=== PATIENT | male | born 1990 | race Hispanic/Latino ===

== ENCOUNTER 2019-01-13 15:36 | Emergency (ER) | payer BC ==
[2019-01-13] MEDS ORDERED: KETOROLAC 30 MG/ML INJ ONE (16:28)
[2019-01-13] MEDS ORDERED: NA CHLORIDE 0.9% 1,000 ML ONE (16:28)
[2019-01-13] MEDS ORDERED: DIPHENHYDRAMINE 50 MG/ML VIAL ONE (16:28)
[2019-01-13] MEDS ORDERED: METOCLOPRAMIDE 10 MG/2mL INJ ONE (16:28)
--- NOTE | 2019-01-13 16:41 | RAD REPORT ---
EXAM DESCRIPTION: CT - Head Brain Wo Cont - 01/13/2019 4:28 pm CLINICAL HISTORY: HEADACHE Headache, drowsiness COMPARISON: <Comparisons> TECHNIQUE: All CT scans are performed using dose optimization technique as appropriate and may inclu de automated exposure control or mA/KV adjustment according to patient size. FINDINGS: No intracranial hemorrhage, hydrocephalus or extra-axial fluid collection.No areas of brai n edema or evidence of midline shift. The paranasal sinuses and mastoids are clear. The calvarium is intact. IMPRESSION: No acute intracranial abnormality.
--- NOTE | 2019-01-13 17:58 | ER ---
Nurse's Notes [facility] Name: Shelton Parada Jr Age: 28 yrs Sex: Male : 1990 Arrival Date: 01/13/2019 Time: 15:38 Bed 18 Private MD: Diagnosis: Headache Presentation: 01/13 15:41 Presenting complaint: Patient states: CALDERON for the last 48 hours. Low grade temp at home. la1 Transition of care: patient was not received from another setting of care. Onset of symptoms was January 13, 2019. Risk Assessment: Do you want to hurt yourself or someone else? Patient reports no desire to harm self or others. Initial Sepsis Screen: Does the patient meet any 2 criteria? No. Patient's initial sepsis screen is negative. Does the patient have a suspected source of infection? No. Patient's initial sepsis screen is negative. Care prior to arrival: None. 15:41 Method Of Arrival: Ambulatory la1 15:41 Acuity: NEREYDA 3 la1 Historical: - Allergies: 15:42 No Known Allergies; la1 - PMHx: 15:42 None; la1 - Immunization history:: Adult Immunizations up to date. - Social history:: Smoking status: Patient/guardian denies using tobacco. - Ebola Screening: : No symptoms or risks identified at this time. Screenin:00 Abuse screen: Denies threats or abuse. Nutritional screening: No deficits noted. em Tuberculosis screening: No symptoms or risk factors identified. Fall Risk None identified. Assessment: 16:00 General: Appears in no apparent distress. comfortable, Behavior is calm, cooperative, em Denies fever. Pain: Complains of pain in forehead Pain currently is 8 out of 10 on a pain scale. Quality of pain is described as sharp. Neuro: Level of Consciousness is awake, alert, obeys commands, Oriented to person, place, time, situation, Reports headache frontal area, Denies dizziness, numbness photophobia. Cardiovascular: Capillary refill < 3 seconds Patient's skin is warm and dry. Respiratory: Airway is patent Respiratory effort is even, unlabored, Respiratory pattern is regular, symmetrical. GI: Abdomen is flat, Patient currently denies nausea, vomiting. EENT: Denies nasal congestion, nasal discharge. Derm: Skin is intact, is healthy with good turgor, Skin is pink, warm \T\ dry. Musculoskeletal: Capillary refill < 3 seconds, Range of motion: intact in all extremities. 16:50 Reassessment: Patient appears in no apparent distress at this time. Patient and/or em family updated on plan of care and expected duration. Pain level reassessed. Patient is alert, oriented x 3, equal unlabored respirations, skin warm/dry/pink. 17:50 Reassessment: Patient appears in no apparent distress at this time. Patient and/or em family updated on plan of care and expected duration. Pain level reassessed. Patient is alert, oriented x 3, equal unlabored respirations, skin warm/dry/pink. rates pain 3/10 Patient states feeling better. Vital Signs: 15:42 BP 158 / 64; Pulse 79; Resp 16; Temp 99.5; Pulse Ox 100% on R/A; Weight 97.52 kg; la1 Height 5 ft. 10 in. (177.80 cm); 17:12 BP 130 / 74; Pulse 71; Resp 18; Temp 99.1(O); Pulse Ox 99% on R/A; Pain 4/10; em 18:23 BP 137 / 68; Pulse 69; Resp 18; Pulse Ox 99% on R/A; Pain 3/10; em 15:42 Body Mass Index 30.85 (97.52 kg, 177.80 cm) la1 ED Course: 15:38 Patient arrived in ED. as 15:42 Triage completed. la1 15:42 Arm band placed on left wrist. la1 15:56 Robby Zimmerman NP is PHCP. pm1 15:56 Milton Cordova MD is Attending Physician. pm1 16:00 Patient has correct armband on for positive identification. Placed in gown. Bed in low em position. Adult w/ patient. Pulse ox on. NIBP on. 16:27 Kevin Tolentino LVN is Primary Nurse. em 16:28 CT completed. Patient tolerated procedure well. Patient moved back from CT. mw3 16:31 CT Head Brain wo Cont In Process Unspecified. EDMS 16:45 Initial lab(s) drawn, by me, sent to lab. Inserted saline lock: 20 gauge in right em antecubital area, using aseptic technique. Blood collected. 18:23 No provider procedures requiring assistance completed. IV discontinued, intact, em bleeding controlled, No redness/swelling at site. Pressure dressing applied. Administered Medications: 16:47 Drug: Reglan 10 mg Route: IVP; Site: right antecubital; iw 17:20 Follow up: Response: No adverse reaction; Pain is decreased em 16:47 Drug: NS 0.9% 1000 ml Route: IV; Rate: 1000 ml; Site: right antecubital; iw 17:39 Follow up: IV Status: Completed infusion; IV Intake: 1000ml em 16:47 Drug: Benadryl 25 mg Route: IVP; Site: right antecubital; iw 17:39 Follow up: Response: No adverse reaction; Pain is decreased em 16:49 Drug: TORadol 30 mg Route: IVP; Site: right antecubital; iw 17:20 Follow up: Response: No adverse reaction; Pain is decreased em Intake: 17:39 IV: 1000ml; Total: 1000ml. em Outcome: 17:57 Discharge ordered by MD. pm1 18:23 Discharged to home ambulatory, with family. em 18:23 Condition: good 18:23 Discharge instructions given to patient, Instructed on discharge instructions, follow up and referral plans. medication usage, Demonstrated understanding of instructions, follow-up care, medications, Prescriptions given X 1. 18:24 Patient left the ED. em Signatures: Dispatcher [employer] Kevin Steele, CYNTHIA POOL TECHNICIAN Delaney Alvarado Irene, RN BRAD Ethan Baig RN RN la1 Robby Zimmerman, CRYSTAL GROWER CRYSTAL GROWER pm1 Florencia Sage mw3 Corrections: (The following items were deleted from the chart) 17:14 16:00 General: Appears in no apparent distress. comfortable, Behavior is calm, em cooperative, Reports fever for em
--- NOTE | 2019-01-13 17:59 | EDPHYS ---
Physician Documentation [facility] Name: Shelton Parada Jr Age: 28 yrs Sex: Male : 1990 Arrival Date: 01/13/2019 Time: 15:38 Bed 18 Private MD: ED Physician Milton Cordova HPI: 01/13 16:20 This 28 yrs old Male presents to ER via Ambulatory with complaints of Headache.pm1 16:20 The patient complains of pain to the forehead, right yarsani and left yarsani. The pm1 patient describes the headache as aching, constant. Onset: The symptoms/episode began/occurred 2 day(s) ago. Associated signs and symptoms: Pertinent positives: fever tmax 99, Pertinent negatives: altered mental status, dizziness, nausea, neck stiffness, rash, vision changes, vomiting, weakness. Severity of symptoms: in the emergency department the pain is unchanged, a " 7" out of "10". Headache History: Denies prior headaches. The symptoms are alleviated by Darkened room, the symptoms are aggravated by lights. The patient has not experienced similar symptoms in the past. The patient has not recently seen a physician. Historical: - Allergies: 15:42 No Known Allergies; la1 - PMHx: 15:42 None; la1 - Immunization history:: Adult Immunizations up to date. - Social history:: Smoking status: Patient/guardian denies using tobacco. - Ebola Screening: : No symptoms or risks identified at this time. ROS: 16:20 Eyes: Negative for injury, pain, redness, and discharge, ENT: Negative for injury, pm1 pain, and discharge, Neck: Negative for injury, pain, and swelling, Cardiovascular: Negative for chest pain, palpitations, and edema, Respiratory: Negative for shortness of breath, cough, wheezing, and pleuritic chest pain, Abdomen/GI: Negative for abdominal pain, nausea, vomiting, diarrhea, and constipation, Back: Negative for injury and pain, : Negative for injury, bleeding, discharge, and swelling, MS/Extremity: Negative for injury and deformity, Skin: Negative for injury, rash, and discoloration. 16:20 Constitutional: Positive for fever, Negative for body aches, chills, poor PO intake. 16:20 Neuro: Positive for headache, Negative for dizziness, numbness, tingling, weakness. Exam: 16:20 Constitutional: This is a well developed, well nourished patient who is awake, alert, pm1 and in no acute distress. Head/Face: Normocephalic, atraumatic. Eyes: Pupils equal round and reactive to light, extra-ocular motions intact. Lids and lashes normal. Conjunctiva and sclera are non-icteric and not injected. Cornea within normal limits. Periorbital areas with no swelling, redness, or edema. ENT: Nares patent. No nasal discharge, no septal abnormalities noted. Tympanic membranes are normal and external auditory canals are clear. Oropharynx with no redness, swelling, or masses, exudates, or evidence of obstruction, uvula midline. Mucous membranes moist. Neck: Trachea midline, no thyromegaly or masses palpated, and no cervical lymphadenopathy. Supple, full range of motion without nuchal rigidity, or vertebral point tenderness. No Meningismus. Chest/axilla: Normal chest wall appearance and motion. Nontender with no deformity. No lesions are appreciated. Cardiovascular: Regular rate and rhythm with a normal S1 and S2. No gallops, murmurs, or rubs. Normal PMI, no JVD. No pulse deficits. Respiratory: Lungs have equal breath sounds bilaterally, clear to auscultation and percussion. No rales, rhonchi or wheezes noted. No increased work of breathing, no retractions or nasal flaring. Abdomen/GI: Soft, non-tender, with normal bowel sounds. No distension or tympany. No guarding or rebound. No evidence of tenderness throughout. Back: No spinal tenderness. No costovertebral tenderness. Full range of motion. Skin: Warm, dry with normal turgor. Normal color with no rashes, no lesions, and no evidence of cellulitis. MS/ Extremity: Pulses equal, no cyanosis. Neurovascular intact. Full, normal range of motion. 16:20 Neuro: Orientation: is normal, Mentation: is normal, Cranial nerves: CN II- XII are normal as tested, Cerebellar function: is grossly normal, normal finger to nose testing, heel to lopes testing is normal, Motor: moves all fours, strength is normal, strength is 5/5 in all extremities, Sensation: is normal, no obvious gross deficits. Vital Signs: 15:42 BP 158 / 64; Pulse 79; Resp 16; Temp 99.5; Pulse Ox 100% on R/A; Weight 97.52 kg; la1 Height 5 ft. 10 in. (177.80 cm); 17:12 BP 130 / 74; Pulse 71; Resp 18; Temp 99.1(O); Pulse Ox 99% on R/A; Pain 4/10; em 18:23 BP 137 / 68; Pulse 69; Resp 18; Pulse Ox 99% on R/A; Pain 3/10; em 15:42 Body Mass Index 30.85 (97.52 kg, 177.80 cm) la1 MDM: 16:00 Patient medically screened. shiraz 17:56 Data reviewed: vital signs. Data interpreted: Pulse oximetry: on room air is 99 %. pm1 Interpretation: normal. Counseling: I had a detailed discussion with the patient and/or guardian regarding: the historical points, exam findings, and any diagnostic results supporting the discharge/admit diagnosis, radiology results, the need for outpatient follow up, to return to the emergency department if symptoms worsen or persist or if there are any questions or concerns that arise at home. 01/13 16:13 Order name: CT Head Brain wo Cont; Complete Time: 16:43 pm1 01/13 16:13 Order name: IV Saline Lock; Complete Time: 16:46 pm1 Administered Medications: 16:47 Drug: Reglan 10 mg Route: IVP; Site: right antecubital; iw 17:20 Follow up: Response: No adverse reaction; Pain is decreased em 16:47 Drug: NS 0.9% 1000 ml Route: IV; Rate: 1000 ml; Site: right antecubital; iw 17:39 Follow up: IV Status: Completed infusion; IV Intake: 1000ml em 16:47 Drug: Benadryl 25 mg Route: IVP; Site: right antecubital; iw 17:39 Follow up: Response: No adverse reaction; Pain is decreased em 16:49 Drug: TORadol 30 mg Route: IVP; Site: right antecubital; iw 17:20 Follow up: Response: No adverse reaction; Pain is decreased em Disposition: 01/13/19 17:57 Discharged to Home. Impression: Headache. - Condition is Stable. - Discharge Instructions: General Headache Without Cause. - Prescriptions for Fiorinal 50- 325-40 mg Oral Capsule - take 1 capsule by ORAL route every 4 hours As needed - not to exceed 6 capsules per day; 20 capsule. - Medication Reconciliation Form, Thank You Letter, Antibiotic Education, Prescription Opioid Use form. - Follow up: Emergency Department; When: As needed; Reason: Worsening of condition. Follow up: Private Physician; When: 2 - 3 days; Reason: Recheck today's complaints, Continuance of care, Re-evaluation by your physician. - Problem is new. - Symptoms have improved. Addendum: 01/15/2019 09:58 Co-signature as Attending Physician, Milton Cordova MD I agree with the assessment and c ventura plan of care. Signatures: Dispatcher [employer] EDMilton Hand MD MD cha Munoz, Edgar, OPTICAL LATHE OPERATOR OPTICAL LATHE OPERATOR em Kait Jacinto RN RN iw Ethan Baig RN RN la1 Robby Zimmerman, GENERAL DOC GENERAL DOC pm1 Corrections: (The following items were deleted from the chart) 01/13 18:24 17:57 01/13/2019 17:57 Discharged to Home. Impression: Headache. Condition is Stable. em Forms are Medication Reconciliation Form, Thank You Letter, Antibiotic Education, Prescription Opioid Use. Follow up: Emergency Department; When: As needed; Reason: Worsening of condition. Follow up: Private Physician; When: 2 - 3 days; Reason: Recheck today's complaints, Continuance of care, Re-evaluation by your physician. Problem is new. Symptoms have improved. pm1
== END 2019-01-13 18:24 | disposition home or self-care (01) ==
LOC: ER 15:36
DX: R51 Headache (principal)
CPT/HCPCS: 96361; 70450; 96375; 96374; 99284; J2765; J7030

== ENCOUNTER 2019-04-30 02:26 | Emergency (ER) | payer BC ==
[2019-04-30 03:41] LABS: Hematocrit 50.5 % (39.6-49.0); MPV 9.4 fL (7.6-11.3)
[2019-04-30 03:59] LABS: Albumin 4.3 g/dL (3.4-5.0); Bilirubin Total 0.3 mg/dL (0.2-1.0); Potassium 3.5 mmol/L (3.5-5.1); Protein, Total 7.6 g/dL (6.4-8.2)
[2019-04-30 04:00] LABS: Urine Blood NEGATIVE (NEG); Urine Glucose NEGATIVE (NEG); Urine Protein NEGATIVE (NEG); Urine pH 5.5 (5.0-7.0)
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
[2019-04-30] MEDS ORDERED: NA CHLORIDE 0.9% 1,000 ML ONE (04:52)
[2019-04-30] MEDS ORDERED: TETANUS & DIPHTHERIA TOX,ADULT 0.5 ML VIAL ONE (04:56)
[2019-04-30 05:21] VITALS: BP 154/96; TEMP 99.5; O2SAT 97
== END 2019-04-30 05:06 | disposition short-term general hospital (02) ==
LOC: ER 02:26
DX: T20.60XA Corrosion of second degree of head, face, and neck, unspecified site, initial encounter (principal); T22.60XA Corrosion of second degree of shoulder and upper limb, except wrist and hand, unspecified site, initial encounter; N17.9 Acute kidney failure, unspecified; T49.0X1A Poisoning by local antifungal, anti-infective and anti-inflammatory drugs, accidental (unintentional), initial encounter; T32.0 Corrosions involving less than 10% of body surface; Y93.9 Activity, unspecified; Y92.89 Other specified places as the place of occurrence of the external cause; Y99.8 Other external cause status; Z23 Encounter for immunization
CPT/HCPCS: 36415; 81003; 85027; 80053; 90471; 90714; 99285; J7030

== ENCOUNTER 2019-12-12 03:05 | Emergency (ER) | payer BC, OTHER ==
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
--- OUTSIDE RECORDS SUMMARY | 2019-12-12 03:07 | XMS REPORT | Continuity of Care Document ---
:1990 Author Organization [facility] t Address [address] [place] [address] Care Team Providers Name Role Phone Doctor Unassigned, [place] Attending Clinician Unavailable Singer LEIVA Attending Clinician Anejonh PIE CHEF Attending Clinician Demian SALINAS, S Attending Clinician Unavailable Pob1, Care Clinic Attending Clinician Unavailable Problems This patient has no known problems. Allergies, Adverse Reactions, Alerts This patient has no known allergies or adverse reactions. Medications This patient has no known medications. Procedures This patient has no known procedures. Encounters Start End Encounter Admission Attending Care Care Encounter Source Date/Time Date/Time Type Type Clinicians Facility Department ID 2019-12-11 2019-12-11 Orders Doctor GIMENEZ [id number] 00:00:00 00:00:00 Only UnassignedANN MARIE [id number] [place] [facility] [id number] 2019-11-30 2019-11-30 Emergency ENRIQUE Wahl [id number] 19:44:35 20:18:00 Babak Maldonado [id number] [place] [id number] [place] [id number] 2019-11-30 2019-11-30 Telephone ENRIQUE Martinez [id number] 00:00:00 00:00:00 [facility] [id number] [place] [id number] [place] [phone] nal [address] 2019-11-28 2019-11-28 Telephone PERNELL Arciniega [id number] 00:00:00 00:00:00 Shannan Crow ANN MARIE [id number] [facility] [id number] 2019-11-26 2019-11-26 Urgent Pob1, Acute [facility] [id number] 15:06:46 15:26:46 [facility] [id number] [place] [id number] [facility] [phone] nal [address] Results This patient has no known results.
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
--- OUTSIDE RECORDS SUMMARY | 2019-12-12 03:08 | XMS REPORT | Summary of Care ---
:1990 Author Organization [facility] - Health Address [address] [place] [id number] Care Team Providers Name Role Phone Pcp, Patient Does Not Have A Primary Care Provider +[id number] 0-0000 Reason for Visit Reason Comments Other COVID Positive Auth/Cert Status Reason Specialty Diagnoses / Referred By Referred To Procedures Contact Contact Emergency Medicine [facility] Em ergency Dept [address] [place] [address] Fax: Encounter Details Date Type Department Care Team Description 11/30/2019 Emergency ADC-Emergency Babak Wahl DO Acute bronchitis due Department [address] [place] [address]. to COVID-[address] [facility] [address] (Primary Dx) [place] [address] [place] [address] [phone] Allergies No Known Allergiesdocumented as of this [...] Cough. chlorpheniramine 4 mg Take 1 tablet by 30 tablet 0 11/30/2019 Active tabletIndications: Acute mouth every 6 bronchitis due to (six) hours as COVID-19 virus needed for Allergies or Runny nose. multivitamin Take 1 capsule 30 capsule 0 11/30/2019 Active capsuleIndications: by mouth daily. Acute bronchitis due to COVID-19 virus ulenstc-[id number]-[id number] Take as directed 90 tablet 0 11/30/2019 Active 333-133-8.3 mg for daily dose. TabIndications: Acute bronchitis due to COVID-19 virus documented as [...] Sign Reading Time Taken Comments Blood Pressure 163/94 11/30/2019 7:57 PM CDT Pulse 101 11/30/2019 7:51 PM CDT Temperature 38.2 C (100.8 F) 11/30/2019 7:57 PM CDT Respiratory Rate 20 11/30/2019 7:57 PM CDT Oxygen Saturation 95% 11/30/2019 7:51 PM CDT Inhaled Oxygen Concentration - - Weight 90.7 kg (200 lb) 11/30/2019 7:51 PM CDT Height - - Body Mass Index 28.7 11/26/2019 3:17 PM CDT documented in this encounter Discharge Instructions AttachmentsThe following attachments cannot be sent through Care Everywhere. Coronavirus Disease 2018 (COVID-19) ([place])documented in this encounter Plan of Treatment Health Maintenance Due Date Last Done Comments VARICELLA VACCINES (1 of - 1993 2-dose childhood series) DTaP,Tdap,and [...] filedocumented in this encounter Visit Diagnoses Diagnosis Acute bronchitis due to COVID-19 virus - Primary documented in this encounter Additional Health Concerns Infection Onset Date Last Indicated Resolved Time COVID-19 Confirmed 11/28/2019 11/28/2019 documented as of this encounter Insurance Payer Benefit Plan Subscriber ID Effective Dates Phone Address Type / Group [place] [id number] [place] [phone] [place] P[place] - OUT OF t 7 [id number] [place] [address] documented as of this encounter
[2019-12-12] MEDS ORDERED: KETOROLAC 30 MG/ML INJ ONE (03:31)
[2019-12-12] MEDS ORDERED: NA CHLORIDE 0.9% 1,000 ML ONE ×2 (03:32→05:33)
[2019-12-12 03:59] LABS: Absolute Lymphocytes (CBC) 2.5 K/uL (0.7-4.9); Basophils % 1.4 % (0-1.3); Hematocrit 47.2 % (39.6-49.0); Lymphocytes % 17.2 % (15.3-44.8); RBC Red Blood Cell Count 5.37 M/uL (4.33-5.43)
[2019-12-12 04:05] LABS: Albumin 3.6 g/dL (3.4-5.0); Bilirubin Direct 0.2 mg/dL (0-0.2); Bilirubin Total 0.6 mg/dL (0.2-1.0); Potassium 4.3 mmol/L (3.5-5.1); Protein, Total 7.6 g/dL (6.4-8.2)
--- NOTE | 2019-12-12 05:01 | EDPHYS ---
Physician Documentation [facility] Name: Shelton Parada Jr Age: 29 yrs Sex: Male : 1990 Arrival Date: 12/12/2019 Time: 03:05 Bed 6 Private MD: MARU Physician Hudson Liu Historical: - Allergies: 12/11 03:18 No Known Allergies; ao - Home Meds: 03:18 None [Active]; ao - PMHx: 03:18 None; ao - PSHx: 03:18 None; ao - Immunization history:: Adult Immunizations up to date. - Social history:: Smoking status: Patient denies any tobacco usage or history of. Patient/guardian denies using alcohol, street drugs, IV drugs. Vital Signs: 03:14 BP 140 / 95; Pulse 133; Resp 20; Temp 99.2(O); Pulse Ox 99% on R/A; Weight 86.18 kg; ao Height 5 ft. 8 in. (172.72 cm); 04:20 BP 138 / 90; Pulse 116; Resp 16; Pulse Ox 96% on R/A; ao 04:57 BP 126 / 80; Pulse 103; Resp 16; Pulse Ox 95% ; ao 05:11 BP 121 / 80; Pulse 107; Resp 18; Temp 98.4; Pulse Ox 95% on R/A; ea 05:45 BP 127 / 78; Pulse 98; Resp 16; Pulse Ox 96% ; ao 03:14 Body Mass Index 28.89 (86.18 kg, 172.72 cm) ao MDM: 03:07 Patient medically screened. 12/11 03:20 Order name: Basic Metabolic Panel; Complete Time: 04:59 12/11 04:59 Interpretation: Normal except: GLUC 109; GFR 75. 12/11 03:20 Order name: CBC with Diff; Complete Time: 04:59 12/11 04:59 Interpretation: Normal except: WBC 14.7; BASO% 1.4; NEUT A 10.3. 12/11 03:20 Order name: Hepatic Function; Complete Time: 04:59 12/11 04:59 Interpretation: Normal except: AST 79; ALT 272; GLOB 4.0; A/G 0.9. 12/11 03:20 Order name: Lipase; Complete Time: 04:59 4 12/11 04:59 Interpretation: Within normal limits: LIP 205. 4 12/11 04:06 Order name: CXR XRAY 12/11 04:06 Order name: CXR XRAY 12/11 03:20 Order name: IV Saline Lock; Complete Time: 03:42 tw4 12/11 03:20 Order name: Labs collected and sent; Complete Time: 03:42 tw4 Administered Medications: 03:28 CANCELLED (Other Intervention Used): TORadol 60 mg IM once ea 03:41 Drug: NS 0.9% 1000 ml Route: IV; Rate: 1 bolus; Site: right antecubital; ao 05:46 Follow up: IV Status: Completed infusion; IV Intake: 1000ml ao 03:41 Drug: TORadol 30 mg Route: IVP; Site: right antecubital; ao 05:47 Follow up: Response: No adverse reaction ao 05:26 Drug: NS 0.9% 1000 ml Route: IV; Rate: 1 bolus; Site: right antecubital; ea 06:57 Follow up: IV Status: Completed infusion; IV Intake: 1000ml ao Disposition: 12/12/19 05:00 Discharged to Home. Impression: Sprain of ligaments of thoracic spine. - Condition is Stable. - Discharge Instructions: Back Pain, Adult, Thoracic Strain. - Prescriptions for Ibuprofen 800 mg Oral Tablet - take 1 tablet by ORAL route every 8 hours As needed take with food; 30 tablet. Cyclobenzaprine 10 mg Oral Tablet - take 1 tablet by ORAL route every 8 hours As needed; 30 tablet. - Medication Reconciliation Form, Thank You Letter, Antibiotic Education, Prescription Opioid Use form. - Follow up: Private Physician; When: Upon discharge from the Emergency Department; Reason: Recheck today's complaints, Continuance of care, Re-evaluation by your physician. - Problem is new. - Symptoms have improved. Signatures: Dispatcher [employer] Homero Franks RN Janny Falcon RN RN ea Wadley, Terrence, MD MD tw4 Corrections: (The following items were deleted from the chart) 03:28 03:14 TORadol 60 mg IM once ordered. tw4 ea 07:00 05:00 12/12/2019 05:00 Discharged to Home. Impression: Sprain of ligaments of thoracic ao spine. Condition is Stable. Forms are Medication Reconciliation Form, Thank You Letter, Antibiotic Education, Prescription Opioid Use. Follow up: Private Physician; When: Upon discharge from the Emergency Department; Reason: Recheck today's complaints, Continuance of care, Re-evaluation by your physician. Problem is new. Symptoms have improved. tw4
--- NOTE | 2019-12-12 05:01 | ER ---
Nurse's Notes [facility] Name: Shelton Parada Jr Age: 29 yrs Sex: Male : 1990 Arrival Date: 12/12/2019 Time: 03:05 Bed 6 Private MD: Diagnosis: Sprain of ligaments of thoracic spine Presentation: 12/11 03:14 Chief complaint: Patient states: Back pain for 24 hr that radiates to the right side ao and SOB on exertion. Pt was tested positive with COVID on November 25, but states that symptoms has resolved. Coronavirus screen: Patient reports shortness of breath or difficulty breathing. Patient reports contact with known and/or suspected case of COVID-19. Ebola Screen: Patient negative for fever greater than or equal to 101.5 degrees Fahrenheit, and additional compatible Ebola Virus Disease symptoms Patient denies exposure to infectious person. Patient denies travel to an Ebola-affected area in the 21 days before illness onset. Initial Sepsis Screen: Does the patient meet any 2 criteria? HR > 90 bpm. No. Patient's initial sepsis screen is negative. Does the patient have a suspected source of infection? No. Patient's initial sepsis screen is negative. Risk Assessment: Do you want to hurt yourself or someone else? Patient reports no desire to harm self or others. Onset of symptoms was December 11, 2019. 03:14 Method Of Arrival: Ambulatory ao 03:14 Acuity: NEREYDA 3 ao Historical: - Allergies: 03:18 No Known Allergies; ao - Home Meds: 03:18 None [Active]; ao - PMHx: 03:18 None; ao - PSHx: 03:18 None; ao - Immunization history:: Adult Immunizations up to date. - Social history:: Smoking status: Patient denies any tobacco usage or history of. Patient/guardian denies using alcohol, street drugs, IV drugs. Screenin:42 Abuse screen: Denies threats or abuse. Denies injuries from another. Nutritional ao screening: No deficits noted. Tuberculosis screening: No symptoms or risk factors identified. Fall Risk None identified. Assessment: 03:19 General: Appears in no apparent distress. comfortable, Behavior is calm, cooperative, ao appropriate for age. Pain: Denies pain. Neuro: Level of Consciousness is awake, alert, obeys commands, Oriented to person, place, time, situation, Appropriate for age Moves all extremities. Full function Speech is normal, Facial symmetry appears normal. Cardiovascular: Heart tones S1 S2 Capillary refill < 3 seconds Patient's skin is warm and dry. Cardiovascular: Reports shortness of breath, Denies chest pain. Respiratory: Airway is patent Respiratory effort is even, unlabored, Respiratory pattern is regular, symmetrical. GI: No signs and/or symptoms were reported involving the gastrointestinal system. : No signs and/or symptoms were reported regarding the genitourinary system. EENT: No signs and/or symptoms were reported regarding the EENT system. Derm: Skin is dry, Skin is pink, warm \T\ dry. normal, Skin temperature is warm. Musculoskeletal: Circulation, motion, and sensation intact. Range of motion: intact in all extremities. 04:20 Reassessment: Patient appears in no apparent distress at this time. Patient and/or ao family updated on plan of care and expected duration. Pain level reassessed. Patient is alert, oriented x 3, equal unlabored respirations, skin warm/dry/pink. Patient states that feel better Patient states feeling better. 04:58 Reassessment: Patient appears in no apparent distress at this time. Patient and/or ao family updated on plan of care and expected duration. Pain level reassessed. Waiting on Dispo orders. 05:45 Reassessment: Patient appears in no apparent distress at this time. Patient and/or ao family updated on plan of care and expected duration. Pain level reassessed. Waiting on second Liter NS to be complete and the discharge. 06:58 Reassessment: Dc home. Pt agree with POC and to follow up with PCP. ao Vital Signs: 03:14 BP 140 / 95; Pulse 133; Resp 20; Temp 99.2(O); Pulse Ox 99% on R/A; Weight 86.18 kg; ao Height 5 ft. 8 in. (172.72 cm); 04:20 BP 138 / 90; Pulse 116; Resp 16; Pulse Ox 96% on R/A; ao 04:57 BP 126 / 80; Pulse 103; Resp 16; Pulse Ox 95% ; ao 05:11 BP 121 / 80; Pulse 107; Resp 18; Temp 98.4; Pulse Ox 95% on R/A; ea 05:45 BP 127 / 78; Pulse 98; Resp 16; Pulse Ox 96% ; ao 03:14 Body Mass Index 28.89 (86.18 kg, 172.72 cm) ao ED Course: 03:05 Patient arrived in ED. ds1 03:06 Homero Shabazz, RN is Primary Nurse. ao 03:07 Hudson Liu MD is Attending Physician. tw4 03:18 Triage completed. ao 03:18 Arm band placed on right wrist. Patient placed in an exam room, on a stretcher, Patient ao notified of wait time. 03:42 Patient has correct armband on for positive identification. Pulse ox on. NIBP on. ao 03:42 Inserted saline lock: 20 gauge in right antecubital area, using aseptic technique. ao Blood collected. 04:58 CXR XRAY In Process Unspecified. EDMS 06:57 No provider procedures requiring assistance completed. IV discontinued, intact, ao bleeding controlled, No redness/swelling at site. Pressure dressing applied. Administered Medications: 03:28 CANCELLED (Other Intervention Used): TORadol 60 mg IM once ea 03:41 Drug: NS 0.9% 1000 ml Route: IV; Rate: 1 bolus; Site: right antecubital; ao 05:46 Follow up: IV Status: Completed infusion; IV Intake: 1000ml ao 03:41 Drug: TORadol 30 mg Route: IVP; Site: right antecubital; ao 05:47 Follow up: Response: No adverse reaction ao 05:26 Drug: NS 0.9% 1000 ml Route: IV; Rate: 1 bolus; Site: right antecubital; ea 06:57 Follow up: IV Status: Completed infusion; IV Intake: 1000ml ao Intake: 05:46 IV: 1000ml; Total: 1000ml. ao 06:57 IV: 1000ml; Total: 2000ml. ao Outcome: 05:00 Discharge ordered by . tw4 06:58 Discharged to home ambulatory. ao 06:58 Condition: stable 06:58 Discharge instructions given to patient, Instructed on discharge instructions, follow up and referral plans. Demonstrated understanding of instructions, follow-up care, medications, Prescriptions given X 2. 07:00 Patient left the ED. ao Signatures: Dispatcher [facility] ds1 Homero Shabazz RN RN ao Antunez, Elena, RN RN ea Wadley, Terrence, MD MD tw4 Corrections: (The following items were deleted from the chart) 04:21 04:20 BP 198 / 90; Pulse 116bpm; Resp 16bpm; Pulse Ox 96% RA; ao ao
[2019-12-12 07:42] VITALS: TEMP 98.4
[2019-12-12 07:44] VITALS: BP 127/78; O2SAT 96
--- NOTE | 2019-12-12 08:06 | RAD REPORT ---
EXAM DESCRIPTION: Yumiko Single View12/12/2019 4:58 am CLINICAL HISTORY: Fever COMPARISON: none FINDINGS: The lungs appear clear of acute infiltrate. The heart is normal size IMPRESSION: No acute abnormalities displayed
== END 2019-12-12 07:00 | disposition home or self-care (01) ==
LOC: ER 03:05
DX: S23.3XXA Sprain of ligaments of thoracic spine, initial encounter (principal)
CPT/HCPCS: 96361; 85025; 80048; 36415; 80076; 83690; 71045; 96374; 99284; J7030 ×2